=== PATIENT | female | born 1965 | race Caucasian/White ===

== ENCOUNTER 2018-06-24 18:56 | Emergency (ER) | payer MEDICAID, OTHER ==
[~2018-06-24] VITALS: Ht 154.9 cm; Wt 59.0 kg
[2018-06-24] MEDS ORDERED: IBUPROFEN 600MG TABLET PO ONE (20:15)
[2018-06-24] MEDS ORDERED: BACITRACIN ZINC OINT UDPKT TOP ONE (20:15)
[2018-06-24] MEDS ORDERED: TETANUS, DIPHTHERIA, PERTUSSIS VAC/PF 0.5ML (>7YR OLD) IM ONE (20:30)
[2018-06-24 22:00] VITALS: BP 115/65
== END 2018-06-24 22:01 | disposition home or self-care (01) ==
LOC: ER 18:56
DX: S80.211A Abrasion, right knee, initial encounter (principal); E78.00 Pure hypercholesterolemia, unspecified; Z98.890 Other specified postprocedural states; W01.0XXA Fall on same level from slipping, tripping and stumbling without subsequent striking against object, initial encounter; Y93.89 Activity, other specified; Y92.89 Other specified places as the place of occurrence of the external cause; Y99.8 Other external cause status
CPT/HCPCS: 73562; 90471; 90715; 99284